=== PATIENT | female | born 2000 | race Caucasian/White ===

== ENCOUNTER 2025-07-11 08:40 | Day surgery (SDC) | payer OTHER ==
[~2025-07-11] VITALS: Ht 160 cm; Wt 96.0 kg
[~2025-07-11 08:40] MED LIST: HYDROXYZINE HCL25 MG PO; IBLOOD GLUCOSE TEST STRIP 1 EA TEST VI PRN; LACTATED RINGER'S 1,000 ML IV SCH; LEVOTHYROXINE88 MC1 PO; LEXAPRO20 MG PO; LIDOCAINE HCL 1% 5 ML SDV INJ ONE; PEPCID40 MG PO; PROTONIX40 M1 PO; TOPAMAX25 M1 PO
[2025-07-11 08:54] VITALS: BP 118/75
[2025-07-11] MEDS ORDERED: LIDOCAINE HCL 2% 5 ML SDV ONE (12:01)
--- NOTE | 2025-07-11 12:34 | NUR ---
07/11/25 1234 Nhan,Cammie 1228 PT ARRIVED TO PACU ON 4L VIA NC, PT SLEEP AND RESP EVEN AND UNLABORED.
[2025-07-11 13:35] VITALS: BP 100/62
--- NOTE | 2025-07-13 11:35 | PATH ---
[facility] [address] [place] [address] Signed SPECIMEN(S): A ANTRUM BIOPSY SPECIMEN(S): B GE JUNCTION SPECIMEN SOURCE: A. ANTRUM BIOPSY B. GE JUNCTION CLINICAL HISTORY: GERD, history of hiatal hernia. A: Rule out H. pylori. FINAL PATHOLOGIC DIAGNOSIS: A. Antrum biopsy: - Benign gastric mucosa - Negative for active acute inflammation, intestinal metaplasia, dysplasia, or Helicobacter organisms by routine HE stain. B. GE junction biopsy: - Benign squamous and glandular mucosa - Negative for intestinal metaplasia, dysplasia, or eosinophilia BB MICROSCOPIC EXAMINATION: Histologic sections of all submitted blocks are examined by light microscopy. These findings, together with the gross examination, support the pathologic diagnosis. GROSS DESCRIPTION: A. The specimen, labeled and designated "Fercho, antrum biopsy," is received in formalin and consists of one sosa soft tissue fragment, 0.2 cm. Entirely submitted in (A1). B. The specimen, labeled and designated "Brantley, GE junction biopsy," is received in formalin and consists of three sosa soft tissue fragments, ranging from 0.1-0.2 cm. Entirely submitted in (B1). JS (under the direct supervision of a pathologist) The Gross Description was prepared using a voice recognition system. The report was reviewed for accuracy; however, sound-alike word errors, addition and/or deletions may occur. If there is any question about this report, please contact Client Services. ADDITIONAL NOTES: Immunohistochemical and/or in situ hybridization studies if performed in this case included appropriate positive controls that reacted as expected. This PATIENT NAME: KRUPA BRANTLEY PATHOLOGY DATE OF : [birth year] REPORT #: [id number] PHYSICIAN: JONAS PATHOLOGY PCP: ELYSE ACOSTA MD REPORT IS CONFIDENTIAL AND NOT TO BE RELEASED WITHOUT AUTHORIZATION [facility] [address] [place], [place] [address] Signed test was developed and its performance characteristics determined by [email or web address]. It has not been cleared or approved by the U.S. Food and Drug Administration. The FDA has determined that such clearance or approval is not necessary. This test is used for clinical purposes. It should not be regarded as investigational or for research. [email or web address] is certified under the Clinical Laboratory Improvement Amendments of 1988 (CLIA) as qualified to perform high complexity clinical laboratory testing. PERFORMING LABORATORY: Technical component was performed by [email or web address], [address] [place] [address] (CLIA# [id number]). Professional interpretation was performed by [email or web address] [address] (CLIA#: [id number]). Diagnostician: Andrea Toussaint MD Pathologist Electronically Signed 07/13/2025 Copies: ~ PATIENT NAME: KRUPA BRANTLEY PATHOLOGY DATE OF : [birth year] REPORT #: [id number] PHYSICIAN: JONAS GUILLEN PCP: ELYSE ACOSTA MD REPORT IS CONFIDENTIAL AND NOT TO BE RELEASED WITHOUT AUTHORIZATION
== END 2025-07-11 13:09 | disposition home or self-care (01) ==
LOC: DS 08:40 → OPS 08:40
PROVIDERS: ATTEND Surgery
PROC: 0DB68ZX Excision of Stomach, Via Natural or Artificial Opening Endoscopic, Diagnostic (ICD-10-PCS; 2025-07-11)
PROC: 0DB48ZX Excision of Esophagogastric Junction, Via Natural or Artificial Opening Endoscopic, Diagnostic (ICD-10-PCS; principal; 2025-07-11 10:05)
DX: K21.9 Gastro-esophageal reflux disease without esophagitis (principal); E03.9 Hypothyroidism, unspecified
CPT/HCPCS: 00731; 84703; 88305; J2003; J2704; J7121